=== PATIENT | male | born 1960 | race Caucasian/White ===

== ENCOUNTER 2017-08-29 08:26 | Emergency (ER) | payer BC ==
[2014-09-03 15:16] VITALS: Ht 172.7 cm; Wt 74.8 kg
[~2017-08-29] VITALS: Ht 172.7 cm; Wt 74.8 kg
[~2017-08-29 08:26] MED LIST changes: -AZIT-17 PO; -TIO18R INH
--- NOTE | 2017-08-29 08:34 | ER Report ---
History and Physical Time Seen By MD: 08:33 HPI/ROS CHIEF COMPLAINT: "I caught a cold" HISTORY OF PRESENT ILLNESS: 57-year-old man here by EMS for syncope 2 just prior to arrival patient arrives complaining of dry mouth chest congestion denies chest pain or shortness of breath denies fever has been exposed to cold symptoms has similar symptoms at home history of COPD on home oxygen does not feel increased need for oxygen no headache nausea or vomiting no other concerns or complaints today. Cough over 3 days has been productive of yellow sputum. He is a smoker. REVIEW OF SYSTEMS: Constitutional: No fever, no chills. Eyes: No discharge. ENT: No sore throat. Cardiovascular: No chest pain, no palpitations. Respiratory: Productive cough, no shortness of breath. Gastrointestinal: No abdominal pain, no vomiting. Genitourinary: No hematuria. Musculoskeletal: No back pain. Skin: No rashes. Neurological: No headache. Allergies: Coded Allergies: No Known Drug Allergies (Unverified , 11/02/16) Home Meds Reported Medications Tiotropium [place] (SPIRIVA) 18 Mcg/Cap Inh, 18 MCG INH QDAY, INH 08/29/17 Rosuvastatin Calcium (CRESTOR) 10 Mg Tab, 10 MG PO QDAY, TAB 07/29/14 Fluticasone/Salmeterol (ADVAIR 100-50 DISKUS) 1 Each Disk.w.dev, 2 EACH IH BID 07/29/14 Aspirin (Childrens Chewable Aspirin) 81 Mg Chew, DAILY 03/04/12 Discontinued Scripts Prednisone (PREDNISONE) 20 Mg Tablet, 60 MG PO QDAY, #12 Prov:DEWEY WAGNER MD 11/02/16 Hx Smoking: Yes Hx Substance Use Disorder: No Hx Alcohol Use: Yes Constitutional Vital Sign - Last 24 Hours 08/29/17 08/29/17 08/29/17 08/29/17 08:28 08:30 08:38 08:41 Temp 97.5 Pulse 66 Resp 20 24 B/P (MAP) 93/83 93/83 (86) O2 Flow Rate 2.0 08/29/17 08/29/17 08/29/17 08/29/17 08:56 09:00 09:11 09:30 Pulse 65 60 Resp 10 28 B/P (MAP) 107/82 (90) 118/85 (96) Pulse Ox 95 94 Physical Exam General Appearance: The patient is alert, has no immediate need for airway protection and no signs of toxicity. Appears dehydrated Eyes: Pupils equal and round no pallor or injection. ENT, Mouth: Dry mucous membranes Respiratory: There are no retractions, lungs are clear to auscultation. Cardiovascular: Regular rate and rhythm. No murmurs gallops or rubs Gastrointestinal: Abdomen is soft and non tender, no masses, bowel sounds normal. Neurological: Normal gross neuro exam Skin: Warm and dry, no rashes. Musculoskeletal: Neck is supple non tender. Extremities are nontender, nonswollen and have full range of motion. No edema DIFFERENTIAL DIAGNOSIS: After history and physical exam differential diagnosis was considered for COPD, bronchitis, pneumonia, influenza, strep no signs of sepsis meningitis or other serious process Medical Decision Making Data Points Result Diagram: 08/29/17 0820 08/29/17 0820 Laboratory Hematology Test 08/29/17 08:20 Red Blood Count 5.47 M/uL (4.00-5.60) Mean Corpuscular Volume 95.1 fL (80.0-96.0) Mean Corpuscular Hemoglobin 32.8 pg (26.0-33.0) Mean Corpuscular Hemoglobin Concent 34.5 g/dL (32.0-36.0) Red Cell Distribution Width 13.1 % (11.5-14.5) Mean Platelet Volume 8.4 fL (7.2-11.1) Neutrophils (%) (Auto) 60.3 % (39.4-72.5) Lymphocytes (%) (Auto) 29.0 % (17.6-49.6) Monocytes (%) (Auto) 8.1 % (4.1-12.4) Eosinophils (%) (Auto) 1.8 % (0.4-6.7) Basophils (%) (Auto) 0.8 % (0.3-1.4) Nucleated RBC Relative Count (auto) 0.0 /100WBC Neutrophils # (Auto) 7.8 K/uL (2.0-7.4) Lymphocytes # (Auto) 3.7 K/uL (1.3-3.6) Monocytes # (Auto) 1.0 K/uL (0.3-1.0) Eosinophils # (Auto) 0.2 K/uL (0.0-0.5) Basophils # (Auto) 0.1 K/uL (0.0-0.1) Nucleated RBC Absolute Count (auto) 0.00 K/uL Sodium Level 136 mmol/L (137-145) Potassium Level 3.3 mmol/L (3.5-5.0) Chloride Level 99 mmol/L (98-107) Carbon Dioxide Level 29 mmol/L (22-30) Blood Urea Nitrogen 14 mg/dl (9-21) Creatinine 1.00 mg/dl (0.66-1.25) Glomerular Filtration Rate Calc > 60.0 Random Glucose 135 mg/dl (75-110) Calcium Level 9.0 mg/dl (8.4-10.2) Total Bilirubin 0.7 mg/dl (0.2-1.3) Aspartate Amino Transf (AST/SGOT) 35 U/L (0-35) Alanine Aminotransferase (ALT/SGPT) 43 U/L (0-56) Alkaline Phosphatase 57 U/L (0-126) Troponin I < 0.012 ng/ml B-Type Natriuretic Peptide 7 pg/ml (0-100) Total Protein 7.0 gm/dl (6.3-8.2) Albumin 4.0 g/dl (3.5-5.0) Chemistry Test 08/29/17 08:20 White Blood Count 12.9 k/uL (4.5-11.0) Red Blood Count 5.47 M/uL (4.00-5.60) Hemoglobin 17.9 g/dL (14.0-18.0) Hematocrit 52.0 % (42.0-52.0) Mean Corpuscular Volume 95.1 fL (80.0-96.0) Mean Corpuscular Hemoglobin 32.8 pg (26.0-33.0) Mean Corpuscular Hemoglobin Concent 34.5 g/dL (32.0-36.0) Red Cell Distribution Width 13.1 % (11.5-14.5) Platelet Count 354 K/uL (150-450) Mean Platelet Volume 8.4 fL (7.2-11.1) Neutrophils (%) (Auto) 60.3 % (39.4-72.5) Lymphocytes (%) (Auto) 29.0 % (17.6-49.6) Monocytes (%) (Auto) 8.1 % (4.1-12.4) Eosinophils (%) (Auto) 1.8 % (0.4-6.7) Basophils (%) (Auto) 0.8 % (0.3-1.4) Nucleated RBC Relative Count (auto) 0.0 /100WBC Neutrophils # (Auto) 7.8 K/uL (2.0-7.4) Lymphocytes # (Auto) 3.7 K/uL (1.3-3.6) Monocytes # (Auto) 1.0 K/uL (0.3-1.0) Eosinophils # (Auto) 0.2 K/uL (0.0-0.5) Basophils # (Auto) 0.1 K/uL (0.0-0.1) Nucleated RBC Absolute Count (auto) 0.00 K/uL Glomerular Filtration Rate Calc > 60.0 Calcium Level 9.0 mg/dl (8.4-10.2) Total Bilirubin 0.7 mg/dl (0.2-1.3) Aspartate Amino Transf (AST/SGOT) 35 U/L (0-35) Alanine Aminotransferase (ALT/SGPT) 43 U/L (0-56) Alkaline Phosphatase 57 U/L (0-126) Troponin I < 0.012 ng/ml B-Type Natriuretic Peptide 7 pg/ml (0-100) Total Protein 7.0 gm/dl (6.3-8.2) Albumin 4.0 g/dl (3.5-5.0) ED Course/Re-evaluation ED Course 08/29/2017 10:32:04 am x-ray results laboratory tests disposition follow-up and reasons to return were discussed and all questions answered and understood Decision to Disposition Date: Aug 29, 2017 Decision to Disposition Time: 10:32 Depart Departure Latest Vital Signs Vital Signs Date Time Temp Pulse Resp B/P (MAP) Pulse Ox O2 Delivery O2 Flow Rate FiO2 08/29/17 09:30 118/85 (96) 08/29/17 09:11 60 28 94 08/29/17 08:38 2.0 08/29/17 08:28 97.5 Impression: Primary Impression: Bronchitis, acute Condition: Improved Disposition: HOME OR SELF-CARE Referrals: JUAN GIRALDO DO (PCP) New Scripts Azithromycin (Z-PACK) 250 Mg Tablet 0 PO QDAY, #6 DOSE-PACK Prov: DELFINO GREEN MD 08/29/17 Patient Instructions: Acute Bronchitis (ED), Dehydration (ED) DELFINO GREEN MD Aug 29, 2017 08:34
[2017-08-29] MEDS ORDERED: TIO18R INH (08:38)
[2017-08-29 09:13] LABS: PLATELET COUNT, AUTOMATED 354 K/uL (150-450)
--- NOTE | 2017-08-29 09:20 | EKG ---
FACILITY: [facility] [place]IENT NAME: PATI MYERS : [id number] MR: [id number] V: [id number] EXAM DATE: ORDERING PHYSICIAN: DELFINO GREEN TECHNOLOGIST: CHELSEY Messina Reason : SYNCOPE Blood Pressure : / mmHG Vent. Rate : 058 BPM Atrial Rate : 058 BPM P-R Int : 200 ms QRS Dur : 118 ms QT Int : 468 ms P-R-T Axes : 020 203 048 degrees QTc Int : 459 ms Sinus bradycardia Right superior axis deviation Septal infarct , age undetermined Abnormal ECG When compared with ECG of 02-NOV-2016 10:50, Questionable change in QRS duration Septal infarct is now present Confirmed by KENTON BRITT ([id number]) on 08/29/2017 11:27:46 AM Referred By: NORMA Confirmed By:KENTON BRITT
[2017-08-29 09:30] VITALS: BP 118/85
--- NOTE | 2017-08-29 09:37 | RADIOLOGY IMAGING REPORT ---
FACILITY: [facility] - [place] PATIENT NAME: Boby Workman : 1960 MR: [id number] V: [id number] EXAM DATE: ORDERING PHYSICIAN: DELFINO GREEN TECHNOLOGIST: Location: [facility] Patient: Boby Workman : 1960 Visit/Account:[id number] Date of Sevice: 08/29/2017 Exam type: CHEST SINGLE AP History: wheezing, dyspnea; for edema Comparison: November 02, 2016. Findings: There is further increased elevation right hemidiaphragm and compared to prior study. There is now a thick band of discoid atelectasis the right lung base. Left lung appears well aerated. The cardiac fluid is normal. The trachea is in midline. IMPRESSION: 1. Further elevation right hemidiaphragm when compared the prior study with discoid atelectasis note d in the right lung base. Report Dictated By: Sejal Meyer MD at 08/29/2017 9:31 AM Report E-Signed By: Sejal Meyer MD at 08/29/2017 9:32 AM WSN:[email or web address]
[2017-08-29] MEDS ORDERED: AZIT-17 PO (10:34)
== END 2017-08-29 10:44 | disposition home or self-care (01) ==
LOC: ER 08:34
DX: J40 Bronchitis, not specified as acute or chronic (principal)
CPT/HCPCS: 71045; 82040; 82247; 82310; 82374; 82435; 82565; 82947; 83880; 84075; 84132; 84155; 84295; 84450; 84460; 84484; 84520; 85025; 93005; 99284

== ENCOUNTER → 2017-08-29 | Outpatient (CLI) | payer BC ==
[2014-09-03 15:16] VITALS: BMI 25.4
[~2017-08-29] MED LIST: ADV500/50; AMOX-559 PO; ASP81; AZIT-17 PO; FLUT1DIS27 IH; INTERFERON PO; NICO-180 TD; NITR-105 PO; OXYC-854 PO; PRED20TA6 PO; ROS10 PO; TIO18R INH
== END ==
LOC: AMB 08:14
PROVIDERS: ATTEND Nurse Practitioner
DX: R55 Syncope and collapse (principal); R53.1 Weakness; R42 Dizziness and giddiness
CPT/HCPCS: A0425; A0427

== ENCOUNTER 2018-02-08 00:22 | Day surgery (SDC) | payer BC ==
[2014-09-03 15:16] VITALS: Ht 172.7 cm; Wt 75.3 kg
[~2018-02-08] VITALS: Ht 172.7 cm; Wt 75.3 kg
[~2018-02-08 00:22] MED LIST changes: +AZIT-17 PO; +TIO18R INH
[2018-02-08] MEDS ORDERED: SUCR1TAB51 PO (06:59)
[2018-02-08] MEDS ORDERED: LIDOCAINE/SOD BICARB 8.4% SYR ID ONE (07:05)
[2018-02-08] MEDS ORDERED: NORMOSOL R SOLN(*) 1000 ML BAG 1,000 ML IV PRN (07:05)
[2018-02-08] MEDS ORDERED: PROPOFOL EMUL(*) 10MG/ML 20 ML 40 ML ONE (07:24)
[2018-02-08] MEDS ORDERED: LIDOCAINE MPF 1% 5 ML VIAL ONE (07:24)
[2018-02-08 07:40] VITALS: BP 128/83
--- NOTE | 2018-02-08 08:11 | Post Operative Progress Note ---
Post Operative Progress Note Date: Feb 08, 2018 Time: 08:45 Surgeon: oseas Anesthesia: dr lobato Pre-Op Diagnosis: history of polyps Post-Op Diagnosis: diverticulosis and 5 mm right colon polyp and 2 mm cecal polyp Procedure(s): colonoscopy and polypectomy ELEN GARCIA MD Feb 08, 2018 08:11
--- NOTE | 2018-02-08 08:12 | Short(Outpt) Discharge Summary ---
Discharge Summary Reason for Hosp/Final Diag: (1) Encounter for colonoscopy due to history of adenomatous colonic polyps Hospital Course & Plan: diverticulosis and 5 mm polyp right colon and 2 mm polyp in cecum Departure Discharge to: Home Discharge Instructions Home Meds Reported Medications Sucralfate (SUCRALFATE) 1 Gm Tablet, 1 GM PO QID 02/08/18 Tiotropium [place] (SPIRIVA) 18 Mcg/Cap Inh, 18 MCG INH QDAY, INH 08/29/17 Rosuvastatin Calcium (CRESTOR) 10 Mg Tab, 10 MG PO QDAY, TAB 07/29/14 Fluticasone/Salmeterol (ADVAIR 100-50 DISKUS) 1 Each Disk.w.dev, 2 EACH IH BID 07/29/14 Aspirin (Childrens Chewable Aspirin) 81 Mg Chew, DAILY 03/04/12 Discontinued Scripts Azithromycin (Z-PACK) 250 Mg Tablet, 0 PO QDAY, #6 DOSE-PACK Prov:DELFINO GREEN MD 08/29/17 Diet: High Fiber Activity: As Tolerated ELEN GARCIA MD Feb 08, 2018 08:12
[2018-02-08 08:38] VITALS: BP 104/66
[2018-02-08 08:45] VITALS: BP 109/71
[2018-02-08 09:04] VITALS: BP 123/84
[2018-02-08 09:19] VITALS: BP_SYST 118; BP_SYST 120; BP_DIAS 75; BP_DIAS 86
--- NOTE | 2018-02-08 10:01 | NACHTIGAL COLONOSCOPY ---
EVENT DATE: February 08, 2018 SURGEON: Nicolas Bennett MD ANESTHESIOLOGIST: Corwin Gay M.D. ANESTHESIA: IV Sedation CHICKEN SEXER: Staff PREOPERATIVE DIAGNOSIS Personal history of polyps. POSTOPERATIVE DIAGNOSIS 1. A 5 mm polyp in the right colon. 2. A 2 mm polyp in the cecum. 3. Diverticulosis. PROCEDURE PERFORMED Colonoscopy with polypectomy. DESCRIPTION OF PROCEDURE The patient was placed in the left lateral decubitus position and given intravenous sedation. The rectal examination was unremarkable. The flexible colonoscope was inserted and advanced to the cecum. The ileocecal valve and base of the cecum were identified. He had a small 2 mm projection at the base of the cecum. This was removed with a cold cup. We withdrew the scope in the mid portion of the right colon. He had a 5 mm polypoid projection. This was removed with polypectomy snare cautery and retrieved. The rest of the right colon, transverse and descending colon were normal except for diverticula in the left colon. There was a staple present where his previous anastomosis was. It was widely patent. No evidence of inflammation or irritation. The rectum was normal. The scope was retroflexed and that appeared to be normal. He should have a repeat colonoscopy in five years. ALANA
== END 2018-02-08 09:31 | disposition home or self-care (01) ==
LOC: OR 00:22
PROVIDERS: ATTEND Surgery
DX: Z12.11 Encounter for screening for malignant neoplasm of colon (principal); D12.2 Benign neoplasm of ascending colon; D12.0 Benign neoplasm of cecum; K57.30 Diverticulosis of large intestine without perforation or abscess without bleeding; Z86.010 Personal history of colon polyps
CPT/HCPCS: 00811; 45380; 45385; 88305; J2001; J2704